=== PATIENT | male | born 1940 | race Caucasian/White ===

== ENCOUNTER → 2019-07-30 | Outpatient (CLI) | payer MEDICARE ==
--- NOTE | 2019-08-02 09:16 | REP ---
PET/CT: History: Abnormal lung field finding. Comparisons: No comparison imaging is available at this juncture. TECHNIQUE: Approximately 45 minutes following the intravenous injection of a 8.11 mCi dose of F-18 FDG, three-dimensional PET scintigraphy is acquired from the skull base to the proximal thighs. Triplanar noncontrast CT scanning is acquired through the same anatomic range for attenuation correction, and image registration with scan parameters optimized to minimize radiation exposure to the patient. PET scintigraphy and CT datasets were fused and displayed on a workstation with multiplanar and projection display capability. PET/CT Findings: The large cavitary opacification in the left lung apex and upper lobe is mildly hypermetabolic. Maximum standard uptake value 3.51. The pleuroparenchymal opacity in the right lung apex does not show hypermetabolic uptake, maximum standard uptake value 1.36. There is no hypermetabolic hilar or mediastinal simon uptake seen. No abnormal adrenal uptake is seen. No other abnormal uptake is seen in the abdomen and pelvis. Incidental note is made of an eccentric aneurysm of the infrarenal abdominal aorta projecting to the left of midline. This measures 3.9 cm in greatest anteroposterior dimension. Impression: 1. Hypermetabolic uptake in the cavitary lesion seen in the left upper lobe of the lung. No hilar or mediastinal hypermetabolic uptake. Otherwise negative PET scintigraphy. 2. 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 Electronically Signed by Nolberto Troncoso MD 08/02/2019 09:08 A
== END ==
LOC: M PLARAD 07:37
PROVIDERS: ATTEND Family Medicine
DX: R91.8 Other nonspecific abnormal finding of lung field (principal)
CPT/HCPCS: 78815; A9552